=== PATIENT | female | born 1975 | race Caucasian/White ===

== ENCOUNTER 2018-09-04 06:00 | Inpatient (IN) | payer BC, OTHER ==
[2018-09-04] MEDS ORDERED: LACTATED RINGERS 1,000 ML IV ONE (10:43)
[2018-09-04] MEDS ORDERED: CITRIC ACID-SODIUM CITRATE 15 ML CUP PO ONE (10:43)
[2018-09-04] MEDS ORDERED: CLINDAMYCIN 900 MG in DEXTROSE 5% IN WATER 50 ML IVPB STA ×2 (10:54)
[2018-09-04 11:00] VITALS: BMI 39.2
[2018-09-04 11:05] LABS: Glucose,Whole Blood 103 mg/dL (75-99)
[2018-09-04 11:10] LABS: Basophils % (A) 0 %; Eosinophils # (A) 0.1 k/uL (0-0.7); Eosinophils % (A) 1 %; HCT 35.8 % (34.0-46.0); HGB 11.7 gm/dL (11.4-16.0); Lymphocytes # (A) 1.3 k/uL (1.0-4.8); Lymphocytes % (A) 13 %; MCH 31.3 pg (25.0-35.0); MCHC 32.7 g/dL (31.0-37.0); MCV 95.7 fL (80.0-100.0); Mean Platelet Volume 7.9; Monocytes # (A) 0.4 k/uL (0-1.0); Monocytes % (A) 4 %; Neutrophils # (A) 8.4 k/uL (1.3-7.7); Neutrophils % (A) 81 %; Platelet Count 228 k/uL (150-450); RBC 3.74 m/uL (3.80-5.40); RDW 13.3 % (11.5-15.5); WBC 10.3 k/uL (3.8-10.6)
[2018-09-04] MEDS ORDERED: OXYTOCIN 10 UNIT/ML 1 ML VIAL ONE (12:14)
[2018-09-04] MEDS ORDERED: NALBUPHINE 10 MG/ML (1 ML AMP) ONE (12:14)
[2018-09-04] MEDS ORDERED: ONDANSETRON 4 MG/2 ML VIAL ONE (12:14)
[2018-09-04] MEDS ORDERED: MORPHINE SULFATE (PF) 0.3 MG/0.3 ML SYR ONE (12:14)
[2018-09-04] MEDS ORDERED: diphenhydrAMINE 50 MG CAP PO PRN (13:09)
[2018-09-04] MEDS ORDERED: NALOXONE 0.4 MG/ML 1 ML VIAL IV PRN (13:09)
[2018-09-04] MEDS ORDERED: METOCLOPRAMIDE 5 MG/ML 2 ML VIAL IVP PRN (13:09)
[2018-09-04] MEDS ORDERED: ACETAMINOPHEN TAB 325 MG TAB PO PRN (13:09)
[2018-09-04] MEDS ORDERED: diphenhydrAMINE 25 MG CAP PO PRN (13:09)
[2018-09-04] MEDS ORDERED: ZOLPIDEM 5 MG TAB PO PRN (13:09)
[2018-09-04] MEDS ORDERED: ONDANSETRON 4 MG/2 ML VIAL IVP PRN (13:09)
[2018-09-04] MEDS ORDERED: diphenhydrAMINE 50 MG/ML 1 ML VIAL IVP PRN ×2 (13:09)
[2018-09-04] MEDS ORDERED: ACETAMINOPHEN IV (For NPO) 1,000 MG in EMPTY BAG 1 BAG IVPB ONE (13:09)
--- NOTE | 2018-09-04 13:14 | P.HPOB ---
History of Present Illness H&P Date: 09/04/18 Chief Complaint: IUP at 39 3/sevenths weeks, AMA, chronic hypertension, gest ational diabetes This is a pleasant 43-year-old 1 para 0 at 39-3/7 weeks that presents to labor and delivery for elective primary with tubal ligation. Patient has known chronic hypertension has been followed closely throughout the . In addition patient was diagnosed with gestational diabetes which has been diet controlled. Patient is noted to be not dilated and blood pressures are noted to be slightly increasing and putting her at risk for superimposed preeclampsia. Given her nonfavorable cervix we discussed options of primary given she would like a tubal ligation in addition. Patient desires primary . Patient has been receiving routine care with myself, on bloodwork should a blood type of A+, rubella immune, RPR nonreactive, HIV negative, hepatitis B surface antigen negative, group beta strep negative in addition. On presentation to labor and delivery today she notes good movement denies loss of fluid or vaginal bleeding. She denies contractions at this time. Review of Systems Constitutional: Denies chills, Denies fatigue, Denies fever Ears, nose, mouth and throat: Denies headache Cardiovascular: Reports edema Respiratory: Denies dyspnea Gastrointestinal: Denies constipation, Denies diarrhea, Denies nausea, Denies vomiting Genitourinary: Reports Past Medical History Past Medical History: Hypertension, Liver Disease Additional Past Medical History / Comment(s): Hx Hepatitis C (ENZYMES ELEVATED, NO TREATMENT, INSURANCE WON'T COVER). POLYCYSTIC OVARY SYNDROME, BEING TESTED FOR ALLERGIES. STATES EXPOSED TO A LOT OF MOLD. 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 HAS SMOKED SINCE SHE WAS 12 YRS OLD, SMOKES LESS THAN 1 PPD Past Drug Use History: None Reported - Past Family History Father Family Medical History: Cancer Mother Family Medical History: Cancer Medications and Allergies Home Medications Medication Instructions Recorded Confirmed Type Citalopram Hydrobromide [CeleXA] 40 mg PO HS 06/10/15 09/04/18 History Aspirin [Children's Aspirin] 81 mg PO DAILY 07/15/18 09/04/18 History Biotin 5,000 mcg PO DAILY 07/15/18 09/04/18 History Cholecalciferol (Vitamin D3) 2,000 unit PO DAILY 07/15/18 09/04/18 History [Vitamin D3] Cyanocobalamin (Vitamin B-12) 2,000 mcg PO DAILY 07/15/18 09/04/18 History [Vitamin B-12] Ferrous Sulfate [Iron] 325 mg PO BID 07/15/18 09/04/18 History Labetalol [Trandate] 100 mg PO BID 07/15/18 09/04/18 History Pnv No.95/Ferrous Fum/Folic AC 1 each PO DAILY 07/15/18 09/04/18 History [ Multivitamin Tablet] valACYclovir [Valtrex] 500 mg PO DAILY 09/04/18 09/04/18 History Allergies Allergy/AdvReac Type Severity Reaction Status Date / Time Penicillins Allergy Anaphylaxis Verified 09/04/18 10:38 baclofen AdvReac Nausea & Verified 09/04/18 10:38 Vomiting cyclobenzaprine HCl AdvReac MAKES HER Verified 09/04/18 10:38 [From Flexeril] TOO SLEEPY tramadol AdvReac Itching Verified 09/04/18 10:38 Exam Osteopathic Statement: *. No significant issues noted on an osteopathic structu ral exam other than those noted in the History and Physical/Consult. Vital Signs Temp Pulse Resp BP Pulse Ox 09/04/18 10:54 98.5 F 88 16 129/73 98 Intake and Output 09/03/18 09/04/18 09/04/18 22:59 06:59 14:59 Other: Weight 94.347 kg Targeted physical exam was performed on this date in general this is a well-no urished well-developed female in no acute distress, her breathing is noted to be nonlabored and her heart has a regular rate and rhythm her abdomen is noted to be gravid and appropriate for gestational age, cervical exam was deferred at this time, heart tones were noted to be category 1 in no contractions are noted. Results Result Diagrams: 09/04/18 10:35 Abnormal Lab Results - Last 24 Hours (Table) 09/04/18 09/04/18 Range/Units 10:35 11:04 RBC 3.74 L (3.80-5.40) m/uL Neutrophils # 8.4 H (1.3-7.7) k/uL POC Glucose (mg/dL) 103 H (75-99) mg/dL Assessment and Plan (1) Term Current Visit: Yes Status: Acute Code(s): Z34.90 - ENCNTR FOR SUPRVSN OF NORMAL , UNSP, UNSP TRIMESTER SNOMED Code(s): 58974887 (2) AMA (advanced maternal age) primigravida 35+ Current Visit: Yes Status: Acute Code(s): O09.519 - SUPERVISION OF ELDERLY PRIMIGRAVIDA, UNSPECIFIED TRIMESTER SNOMED Code(s): 57581643 (3) HTN (hypertension) Current Visit: Yes Status: Acute Code(s): I10 - ESSENTIAL (PRIMARY) HYPERTENSION SNOMED Code(s): 75504129 (4) GDM (gestational diabetes mellitus), class A1 Current Visit: Yes Status: Acute Code(s): O24.410 - GESTATIONAL DIABETES MELLITUS IN , DIET CONTROLLED SNOMED Code(s): 29030471 Plan: Patient is admitted to labor and delivery for planned primary with tubal ligation. Patient was counseled on this procedure in the office risks were reviewed including but not limited to infection, bleeding, damage to bladder, bowel, he other pelvic structures, injury during entry into the uterus. Patient stated understanding and wished to proceed with . In addition patient states she is done with childbearing and she wishes tubal ligation at the time of . Failure rates were reviewed patient stated understanding and questions were answered. We'll proceed with primary low tr ansverse section with tubal ligation.
[2018-09-04] MEDS ORDERED: OXYTOCIN 20 UNITS/1000 ML NS 1,000 ML IV SCH (13:15)
[2018-09-04] MEDS ORDERED: IBUPROFEN IV 800 MG in SODIUM CHLORIDE 0.9% 250 ML IV ONE (13:18)
--- NOTE | 2018-09-04 13:18 | P.OP ---
Date of Procedure: 09/04/18 Preoperative Diagnosis: IUP at 39 and 3/sevenths weeks, AMA, chronic hypertension, gestational diabetes, family planning Postoperative Diagnosis: Same Procedure(s) Performed: Primary low transverse section with tubal ligation, Filshie clips Anesthesia: spinal Surgeon: Luz Still Early Childhood Teacher Assistant #1: Zaid Tompkins Estimated Blood Loss (ml): 600 IV fluids (ml): 700 Urine output (ml): 100 Pathology: other (Placenta, meconium-stained) Condition: stable Disposition: observation Indications for Procedure: Advanced maternal age, chronic hypertension with increasing blood pressures in the office been noted, gestational diabetes, remote from delivery. Operative Findings: Normal uterus tubes and ovaries were appreciated female infant delivered at 1241, weight of 5 lbs. 8 oz. with Apgars of 8 and 9 at one and 5 minutes respectively. Description of Procedure: The patient was prepped and draped in the usual fashion after spinal anesthesia was administered by Dr. Cordoba. A Pfannenstiel incision was made and extended of the abdominal cavity without difficulty. And a Leanna retractor was placed into the abdominal cavity The bladder was noted to be far away from the low transverse segment, A 2 cm incision was made in the transverse plane of the lower uterine segment to enter the uterus at which time clear fluid was noted. The incision was extended in both directions bluntly. The head was encountered within the field and delivered up and through the incision where the nose and mouth were thoroughly suctioned. Remainder of the infant was delivered onto the surgical field where the cord was doubly clamped, cut, and the infant was passed for resuscitative measures with weight and Apgars as noted above. The placenta was delivered manually, intact, and was meconium-stained with a grossly normal three-vessel cord. The uterus was exteriorized and the interior cavity of the uterus swept of any remaining placental and membranous fragments with a laparotomy sponge. The margins of the incision were grasped with Velázquez clamps and the incision closed in 2 layers. First layer was a running locking layer of 0 Vicryl from margin to margin followed by a second layer of imbricating 0 Vicryl from margin to margin. Any small points of bleeding were then made hemostatic with the Bovie. Once hemostasis was achieved , the posterior cul-de-sac was suctioned with a guard and the uterine and ovarian findings are as noted above. The uterus was replaced within the abdominal cavity and the gutters swept of any remaining blood fluid or clot. The incision was again reexamined and hemostasis was noted to be excellent. Any small point of bleeding were made hemostatic with the Bovie. Once hemostasis was achieved the parietal peritoneum was loosely reapproximated. The layer of muscles were examined and made hemostatic with the Bovie. Attention was then turned to the fascia which was closed with 2 running stitches of 0 Vicryl proceeding from the lateral margins to the midpoint. The subcutaneous tissues were irrigated, made hemostatic with the Bovie, and reapproximated with a running stitch of 30 plain catgut. The skin was reapproximated with 4-0 Vicryl. Estimated blood loss for the case was approximately 600 mL. All sponge instrument and needle counts are correct. There were no complications. The p atient tolerated the procedure well and proceeded to the recovery room in stable condition. Both mother and infant are resting comfortably in recovery.
[2018-09-04] MEDS: LACTATED RINGERS 1,000 ML IV SCH ×3 (20:47→22:43)
[2018-09-04] MEDS: NICOTINE 14MG/24HR PATCH TRANSDERM SCH (21:31)
[2018-09-04] MEDS: SENNOSIDES-DOCUSATE SODIUM 1 EACH TAB PO SCH (22:42)
[2018-09-04] MEDS: CITALOPRAM HYDROBROMIDE 20 MG TAB PO SCH (22:46)
[2018-09-05] MEDS: LACTATED RINGERS 1,000 ML IV SCH (06:41)
[2018-09-05 06:42] LABS: Basophils % (A) 0 %; Eosinophils # (A) 0.1 k/uL (0-0.7); Eosinophils % (A) 1 %; HGB 10.9 gm/dL (11.4-16.0); Lymphocytes # (A) 1.2 k/uL (1.0-4.8); Lymphocytes % (A) 10 %; MCH 31.8 pg (25.0-35.0); MCHC 33.1 g/dL (31.0-37.0); MCV 96.1 fL (80.0-100.0); Mean Platelet Volume 8.5; Monocytes # (A) 0.5 k/uL (0-1.0); Monocytes % (A) 4 %; Neutrophils # (A) 10.2 k/uL (1.3-7.7); Neutrophils % (A) 83 %; Platelet Count 199 k/uL (150-450); RBC 3.43 m/uL (3.80-5.40); RDW 13.9 % (11.5-15.5); WBC 12.2 k/uL (3.8-10.6)
[2018-09-05] MEDS: SENNOSIDES-DOCUSATE SODIUM 1 EACH TAB PO SCH ×2 (08:08→20:45)
[2018-09-05] MEDS: IBUPROFEN 600 MG TAB PO PRN ×2 (08:09→14:57)
--- NOTE | 2018-09-05 08:35 | P.PNOBGPC ---
Subjective - Subjective Principal diagnosis: POD 1 LTCS with TL Interval history: Patient is doing well postoperatively. She is ambulating and voiding without difficulty. She states her pain is controlled with oral medications at this time. She is breast-feeding and bottle feeding. She states her lochia is minimal at this time. Patient reports: Reports appetite normal, Reports voiding normally, Reports pain well controlled, Reports ambulating normally : doing well, nursing well Objective - Vital Signs Latest vital signs: Vital Signs Temp Pulse Resp BP Pulse Ox 09/05/18 03:40 98.6 F 81 18 124/81 98 09/05/18 00:00 97.9 F 71 16 110/57 09/04/18 20:00 97.9 F 76 18 129/77 97 09/04/18 16:00 98.3 F 78 18 105/68 09/04/18 15:03 80 16 108/66 09/04/18 14:33 67 16 122/67 96 09/04/18 14:13 72 16 121/59 09/04/18 13:58 72 16 112/62 96 09/04/18 13:43 70 16 115/66 96 09/04/18 13:28 77 16 118/68 96 09/04/18 13:13 98.1 F 75 16 116/58 09/04/18 10:54 98.5 F 88 16 129/73 98 Intake and Output 09/04/18 09/05/18 09/05/18 22:59 06:59 14:59 Intake Total 1500 Output Total 700 300 Balance -700 1200 Intake: Intake, IV Titration 1500 Amount Ibuprofen IV 800 mg In 500 Sodium Chloride 0.9% 250 ml @ 500 mls/hr IV ONCE ONE Rx#:[id number] Lactated Ringers 1,000 ml 1000 @ 125 mls/hr IV .Q8H [facility] Rx#:[id number] Output: Urine 700 300 Uretheral (Cantu) 400 Other: # Voids 1 - Exam Abdomen: Present: normal appearance, soft Incision: Present: normal, dry, intact Uterus: Present: normal, firm - Labs Labs: Abnormal Lab Results - Last 24 Hours (Table) 09/04/18 09/04/18 09/05/18 Range/Units 10:35 11:04 06:27 WBC 12.2 H (3.8-10.6) k/uL RBC 3.74 L 3.43 L (3.80-5.40) m/uL Hgb 10.9 L (11.4-16.0) gm/dL Hct 33.0 L (34.0-46.0) % Neutrophils # 8.4 H 10.2 H (1.3-7.7) k/uL POC Glucose (mg/dL) 103 H (75-99) mg/dL Assessment and Plan (1) Term Current Visit: Yes Status: Acute Code(s): Z34.90 - ENCNTR FOR SUPRVSN OF NORMAL , UNSP, UNSP TRIMESTER SNOMED Code(s): 76844875 (2) AMA (advanced maternal age) primigravida 35+ Current Visit: Yes Status: Acute Code(s): O09.519 - SUPERVISION OF ELDERLY PRIMIGRAVIDA, UNSPECIFIED TRIMESTER SNOMED Code(s): 10175584 (3) HTN (hypertension) Current Visit: Yes Status: Acute Code(s): I10 - ESSENTIAL (PRIMARY) HYPERTENSION SNOMED Code(s): 14947123 (4) GDM (gestational diabetes mellitus), class A1 Current Visit: Yes Status: Acute Code(s): O24.410 - GESTATIONAL DIABETES MELLITUS IN , DIET CONTROLLED SNOMED Code(s): 60198915 (5) S/P section Current Visit: Yes Status: Acute Code(s): Z98.891 - HISTORY OF UTERINE SCAR FROM PREVIOUS SURGERY SNOMED Code(s): 681990381 Plan: We'll plan to continue routine postoperative care and anticipate discharge home tomorrow on postop day #2.
[2018-09-05] MEDS ORDERED: PRENATAL VIT-IRON-FOLIC ACID 1 EACH CAP PO SCH (09:00)
[2018-09-05] MEDS: HYDROcodone/APAP 5-325MG 1 EACH TAB PO PRN ×2 (11:06→18:55)
[2018-09-05] MEDS: CITALOPRAM HYDROBROMIDE 20 MG TAB PO SCH (20:46)
[2018-09-05] MEDS: NICOTINE 14MG/24HR PATCH TRANSDERM SCH (20:46)
[2018-09-06] MEDS: HYDROcodone/APAP 5-325MG 1 EACH TAB PO PRN ×2 (01:44→08:20)
[2018-09-06 02:47] VITALS: RESP 18
[2018-09-06] MEDS: LACTATED RINGERS 1,000 ML IV SCH (02:48)
[2018-09-06] MEDS ORDERED: SIMETHICONE 80 MG CHEWABLE PO PRN (08:19)
--- NOTE | 2018-09-06 08:25 | P.DS ---
Providers Date of admission: 09/04/18 10:06 Expected date of discharge: 09/06/18 Attending physician: Luz Still Primary care physician: Stated None - Discharge Diagnosis(es) (1) Term Current Visit: Yes Status: Acute (2) AMA (advanced maternal age) primigravida 35+ Current Visit: Yes Status: Acute (3) HTN (hypertension) Current Visit: Yes Status: Acute (4) GDM (gestational diabetes mellitus), class A1 Current Visit: Yes Status: Acute (5) S/P section Current Visit: Yes Status: Acute Hospital Course: This is a pleasant 43-year-old 1 para 0 that presented at 39-3/7 weeks for primary secondary to chronic hypertension, gestational diabetes advanced maternal age and family planning complete. Patient underwent primary low transverse segment section with tubal ligation per her request. For further details on the please see the operative report. Patient did deliver a viable female infant at 1241, weight of 5 lbs. 8 oz. with Apgars of 8 and 9 at one and 5 minutes respectively. Patient has done well postoperatively. She is ambulating and voiding without difficulty. She is tolerating a regular diet without nausea or vomiting. She is bottle feeding. She states she wishes discharge home at 48 hours. Patient Condition at Discharge: Good Plan - Discharge Summary New Discharge Prescriptions: No Action Citalopram Hydrobromide [CeleXA] 40 mg PO HS Cyanocobalamin (Vitamin B-12) [Vitamin B-12] 2,000 mcg PO DAILY Cholecalciferol (Vitamin D3) [Vitamin D3] 2,000 unit PO DAILY Labetalol [Trandate] 100 mg PO BID Aspirin [Children's Aspirin] 81 mg PO DAILY Pnv No.95/Ferrous Fum/Folic AC [ Multivitamin Tablet] 1 each PO DAILY Ferrous Sulfate [Iron] 325 mg PO BID Biotin 5,000 mcg PO DAILY valACYclovir [Valtrex] 500 mg PO DAILY Discharge Medication List Citalopram Hydrobromide [CeleXA] 40 mg PO HS 06/10/15 [History] Aspirin [Children's Aspirin] 81 mg PO DAILY 07/15/18 [History] Biotin 5,000 mcg PO DAILY 07/15/18 [History] Cholecalciferol (Vitamin D3) [Vitamin D3] 2,000 unit PO DAILY 07/15/18 [History] Cyanocobalamin (Vitamin B-12) [Vitamin B-12] 2,000 mcg PO DAILY 07/15/18 [History] Ferrous Sulfate [Iron] 325 mg PO BID 07/15/18 [History] Labetalol [Trandate] 100 mg PO BID 07/15/18 [History] Pnv No.95/Ferrous Fum/Folic AC [ Multivitamin Tablet] 1 each PO DAILY 07/15/18 [History] valACYclovir [Valtrex] 500 mg PO DAILY 09/04/18 [History] Follow up Appointment(s)/Referral(s): Luz Still DO [Doctor of Osteopathic Medicine] - 2 Weeks Patient Instructions/Handouts: (DC), (GEN) Discharge Disposition: HOME SELF-CARE
[2018-09-06 08:43] VITALS: BP 154/83; PULSE 60; TEMP 98.3
[2018-09-06] MEDS: NICOTINE 14MG/24HR PATCH TRANSDERM SCH (09:20)
[2018-09-06] MEDS: IBUPROFEN 600 MG TAB PO PRN (10:50)
[2018-09-06] MEDS: SENNOSIDES-DOCUSATE SODIUM 1 EACH TAB PO SCH (11:21)
== END 2018-09-06 12:25 | disposition home or self-care (01) | DRG 785 ==
LOC: 4FBP 10:06
PROVIDERS: ADMIT Obstetrics & Gynecology Obstetrics; ATTEND Obstetrics & Gynecology Obstetrics
PROC: 10D00Z1 Extraction of Products of Conception, Low, Open Approach (ICD-10-PCS; 2018-09-04)
PROC: 0UL70CZ Occlusion of Bilateral Fallopian Tubes with Extraluminal Device, Open Approach (ICD-10-PCS; principal; 2018-09-04 12:00)
DX: O10.02 Pre-existing essential hypertension complicating childbirth (principal); Z30.2 Encounter for sterilization; O24.420 Gestational diabetes mellitus in childbirth, diet controlled; Z3A.39 39 weeks gestation of pregnancy; O99.334 Smoking (tobacco) complicating childbirth; F17.210 Nicotine dependence, cigarettes, uncomplicated; O99.344 Other mental disorders complicating childbirth; F41.9 Anxiety disorder, unspecified; Z79.82 Long term (current) use of aspirin; Z79.899 Other long term (current) drug therapy
CPT/HCPCS: 83036; 85025; 86850; 86900; 86901; 88307

== ENCOUNTER → 2021-10-06 | Outpatient (CLI) | payer BC, OTHER ==
[2021-10-06 14:56] LABS: Basophils # (A) 0.03 X 10*3/uL (0.00-0.10); Basophils % (A) 0.3 %; Eosinophils # (A) 0.15 X 10*3/uL (0.04-0.35); Eosinophils % (A) 1.7 %; HCT 44.6 % (37.2-46.3); Immature Grans, Automated 0.3 %; Lymphocytes # (A) 2.11 X 10*3/uL (0.90-5.00); Lymphocytes % (A) 23.8 %; MCH 30.2 pg (27.0-32.0); MCHC 31.4 g/dL (32.0-37.0); MCV 96.1 fL (80.0-97.0); Mean Platelet Volume 9.8 fL (9.5-12.2); Monocytes # (A) 0.43 X 10*3/uL (0.20-1.00); Monocytes % (A) 4.9 %; NRBC Per 100 WBC 0 /100 WBCS (0.0-0.0); Platelet Count 272 X 10*3/uL (140-440); RBC 4.64 X 10*6/uL (4.10-5.20); RDW 12.6 % (11.5-14.5); WBC 8.85 X 10*3/uL (4.50-10.00)
[2021-10-06 16:09] LABS: Follicle Stimulating Hormone 2.5 mIU/mL
[2021-10-06 16:18] LABS: Thyroid Peroxidase Antibodies <9.0 U/mL (0.0-33.0)
[2021-10-06 16:28] LABS: % Iron Saturation 15.51 (12.00-45.00); ALT 13 U/L (8-44); AST 11 U/L (13-35); African American GFR (CKD) 103.1 (60.0-200.0); Albumin 4.7 g/dL (3.8-4.9); Albumin/Globulin Ratio 2.18 (1.60-3.17); Alkaline Phosphatase 65 U/L (41-126); BUN/Creat Ratio 16.46 Ratio (12.00-20.00); Blood Urea Nitrogen 13.1 mg/dL (9.0-27.0); Calcium 9.6 mg/dL (8.7-10.3); Carbon Dioxide 25.7 mmol/L (20.0-27.5); Chloride 100 mmol/L (96-109); Globulin 2.1 g/dL (1.6-3.3); Glucose 100 mg/dL (70-110); Iron 61 ug/dL (50-170); LDL Cholesterol,Calculated 124.5 mg/dL (0.0-131.0); Potassium 4.5 mmol/L (3.5-5.5); Sodium 137 mmol/L (135-145); Total Iron Binding Capacity 393 ug/dL (228-460); Total Protein 6.8 g/dL (6.2-8.2); VLDL Calculation 19.18 mg/dL (5.00-40.00)
--- NOTE | 2021-10-11 10:31 | MM ---
Reason for Exam: Screening (asymptomatic). Last mammogram was performed 9 year(s) and 8 month(s) ago. Patient History: Menarche at age 14. First Full-Term at age 43. Late child-bearing (after 30). Maternal grandmother had breast cancer. Last menstrual period: 09/21/2021 Risk Values: Gloria 5 year model risk: 1.1%. NCI Lifetime model risk: 11.8%. Prior Study Comparison: 01/09/2003 Screening Mammogram, [facility]. 11/25/2003 Screening Mammogram, [facility]. 02/23/2012 Bilateral Diagnostic Mammogram, [facility]. Tissue Density: There are scattered fibroglandular densities. Findings: Analyzed By CAD. No significant change from prior exams. Overall Assessment: Negative, BI-RAD 1 Management: Screening Mammogram of both breasts in 1 year. A clinical breast exam by your physician is recommended on an annual basis and results should be correlated with mammographic findings. Also, the patient should continue monthly self breast exams. Electronically signed and approved by: Sophia Santana M.D. Radiologist
== END | disposition home or self-care (01) ==
LOC: RADMAMWWP 08:51
PROVIDERS: ATTEND Family Medicine
DX: Z12.31 Encounter for screening mammogram for malignant neoplasm of breast (principal); Z80.3 Family history of malignant neoplasm of breast
CPT/HCPCS: 77063; 77067; 80053; 80061; 82306; 82607; 82670; 82728; 82746; 83001; 83002; 83540; 83550; 84144; 84432; 84443; 85025; 86376

== ENCOUNTER → 2022-12-20 | Outpatient (CLI) | payer BC, OTHER ==
[2022-12-20 16:19] LABS: Basophils # (A) 0.04 X 10*3/uL (0.00-0.10); Basophils % (A) 0.5 %; Eosinophils # (A) 0.18 X 10*3/uL (0.04-0.35); Eosinophils % (A) 2.4 %; HCT 39.2 % (37.2-46.3); HGB 12.7 d/dL (12.0-15.0); Lymphocytes # (A) 2.59 X 10*3/uL (0.90-5.00); Lymphocytes % (A) 34.2 %; MCH 30.5 pg (27.0-32.0); MCHC 32.4 d/dL (32.0-37.0); Mean Platelet Volume 9.6 FL (9.5-12.2); Monocytes # (A) 0.42 X 10*3/uL (0.20-1.00); Monocytes % (A) 5.5 %; NRBC Per 100 WBC 0 X 10*3/uL (0.00-0.01); Neutrophils # (A) 4.32 X 10*3/uL (1.80-7.70); Neutrophils % (A) 57.1 %; Platelet Count 241 X 10*3/uL (140-440); RBC 4.17 X 10*6/uL (4.10-5.20); RDW 12.2 % (11.5-14.5); WBC 7.57 X 10*3/uL (4.50-10.00)
[2022-12-20 16:29] LABS: Erythrocyte Sedimentation Rate 8 mm/Hr (0-20)
[2022-12-20 16:48] LABS: ALT 13 U/L (8-44); AST 17 U/L (13-35); Albumin 4.6 d/dL (3.8-4.9); Albumin/Globulin Ratio 2.19 Ratio (1.60-3.17); Alkaline Phosphatase 59 U/L (41-126); Calcium 9.5 mg/dL (8.7-10.3); Carbon Dioxide 27.1 mmol/L (21.6-31.8); Chloride 102 mmol/L (96-109); Chol/HDL Ratio 4.91 Ratio; Globulin 2.1 d/dL (1.6-3.3); Glucose 96 mg/dL (70-110); LDL Cholesterol,Calculated 98.2 mg/dL (0.0-131.0); Potassium 4.3 mmol/L (3.5-5.5); Rheumatoid Factor, Qnt <15 IU/mL (0-15); Sodium 139 mmol/L (135-145); Total Bilirubin 0.6 mg/dL (0.3-1.2); Total Protein 6.7 d/dL (6.2-8.2)
== END | disposition home or self-care (01) ==
LOC: LABWHC1 09:12
PROVIDERS: ATTEND Family Medicine
DX: Z00.01 Encounter for general adult medical examination with abnormal findings (principal); M25.50 Pain in unspecified joint
CPT/HCPCS: 36415; 80053; 80061; 82306; 84443; 84481; 85025; 85652; 86431

== ENCOUNTER → 2023-08-29 | Outpatient (CLI) | payer BC, OTHER ==
--- NOTE | 2023-08-30 17:57 | MM ---
Reason for Exam: Screening (asymptomatic). Last mammogram was performed 1 year(s) and 11 month(s) ago. Patient History: Menarche at age 14. First Full-Term at age 43. Late child-bearing (after 30). Maternal grandmother had breast cancer. Risk Values: Gloria 5 year model risk: 1.1%. NCI Lifetime model risk: 11.4%. Prior Study Comparison: 11/25/2003 Screening Mammogram, [facility]. 02/23/2012 Bilateral Diagnostic Mammogram, [facility]. 10/06/2021 Bilateral MG 3D screening mammo w/cad, [facility]. Tissue Density: There are scattered areas of fibroglandular density. Findings: Analyzed By CAD. The pattern is symmetrical. No significant interval change is evident No suspicious groups of microcalcifications, spiculated or lobular masses, architectural distortion or other secondary signs of malignancy are mammographically apparent. Overall Assessment: Benign, BI-RAD 2 Management: Screening Mammogram of both breasts in 1 year. A negative mammogram report should not preclude additional follow up of suspicious palpable abnormalities. Patient should continue monthly self breast exam. A clinical breast exam by your physician is recommended on an annual basis and results should be correlated with mammographic findings. Note on Gloria scores and lifetime risk: 1. A Gloria score greater than 3% is considered moderate risk. If this is the case, consider specialist referral to assess eligibility for a risk reducing agent. 2. If overall lifetime risk for the development of breast cancer is 20% or higher, the patient may qualify for future screening with alternating mammogram and breast MRI. Electronically signed and approved by: Elmer Andersen D.O. Radiologis
== END | disposition home or self-care (01) ==
LOC: RADMAMWWP 12:42
PROVIDERS: ATTEND Family Medicine
DX: Z12.31 Encounter for screening mammogram for malignant neoplasm of breast (principal); Z80.3 Family history of malignant neoplasm of breast
CPT/HCPCS: 77063; 77067

== ENCOUNTER → 2023-09-12 | Outpatient (CLI) | payer BC, OTHER ==
[2023-09-12 14:38] LABS: Basophils # (A) 0.02 X 10*3/uL (0.00-0.10); Basophils % (A) 0.3 %; Eosinophils # (A) 0.09 X 10*3/uL (0.04-0.35); Eosinophils % (A) 1.4 %; HCT 41.1 % (37.2-46.3); HGB 13.4 g/dL (12.0-15.0); Lymphocytes # (A) 1.96 X 10*3/uL (0.90-5.00); Lymphocytes % (A) 30.8 %; MCH 30.7 pg (27.0-32.0); MCHC 32.6 g/dL (32.0-37.0); MCV 94.1 FL (80.0-97.0); Mean Platelet Volume 9.6 FL (9.5-12.2); Monocytes # (A) 0.35 X 10*3/uL (0.20-1.00); Monocytes % (A) 5.5 %; NRBC Per 100 WBC 0 X 10*3/uL (0.00-0.01); Neutrophils # (A) 3.93 X 10*3/uL (1.80-7.70); Neutrophils % (A) 61.7 %; Platelet Count 247 X 10*3/uL (140-440); RBC 4.37 X 10*6/uL (4.10-5.20); WBC 6.37 X 10*3/uL (4.50-10.00)
[2023-09-12 15:12] LABS: % Iron Saturation 37.54 (12.00-45.00); BUN/Creat Ratio 20.71 Ratio (12.00-20.00); Blood Urea Nitrogen 14.5 mg/dL (9.0-27.0); Chloride 101 mmol/L (96-109); Chol/HDL Ratio 3.61 Ratio; Glucose 96 mg/dL (70-110); Iron 131 UG/DL (50-170); LDL Cholesterol,Calculated 104.5 mg/dL (0.0-131.0); Potassium 4.2 mmol/L (3.5-5.5); Sodium 139 mmol/L (135-145); Total Iron Binding Capacity 349 UG/DL (228-460)
[2023-09-12 15:13] LABS: ALT 14 U/L (8-44); AST 16 U/L (13-35); Albumin 4.8 g/dL (3.8-4.9); Albumin/Globulin Ratio 2.18 Ratio (1.60-3.17); Alkaline Phosphatase 67 U/L (41-126); Calcium 9.8 mg/dL (8.7-10.3); Carbon Dioxide 25.6 mmol/L (21.6-31.8); Globulin 2.2 g/dL (1.6-3.3); Total Bilirubin 0.5 mg/dL (0.3-1.2)
[2023-09-12 15:15] LABS: Follicle Stimulating Hormone 5.4 mIU/mL; Luteinizing Hormone 17.1 mIU/mL
== END | disposition home or self-care (01) ==
LOC: LABWHC1 08:58
PROVIDERS: ATTEND Family Medicine
DX: E78.5 Hyperlipidemia, unspecified (principal); R68.82 Decreased libido; R58 Hemorrhage, not elsewhere classified
CPT/HCPCS: 36415; 80053; 80061; 82607; 82670; 82728; 82746; 83001; 83002; 83540; 83550; 84402; 84403; 85025